=== PATIENT | female | born 1960 | race Caucasian/White ===

== ENCOUNTER 2022-04-25 07:41 | Day surgery (SDC) | payer OTHER ==
[2022-04-21 13:17] VITALS: BMI 28.2
[2022-04-25] MEDS ORDERED: Fentanyl 100 MCG/2 ML VIAL ONE (09:25)
[2022-04-25] MEDS ORDERED: Midazolam HCl 2 mg/2 ml Vial ONE ×2 (09:25→09:46)
[2022-04-25] MEDS ORDERED: PROPOFOL 80 ML ONE (09:25)
[2022-04-25] MEDS ORDERED: EPINEPHrine 1 MG/ML AMP ONE (09:25)
[2022-04-25] MEDS ORDERED: Ondansetron PF 4 MG/2 ML Vial ONE (09:25)
[2022-04-25] MEDS ORDERED: Dexamethasone 20 MG/5 ML VIAL ONE (09:26)
[2022-04-25] MEDS ORDERED: Lidocaine 1% PF 5 ML VIAL ONE (09:26)
[2022-04-25] MEDS ORDERED: CEFAZOLIN 2 GM VIAL ONE (09:39)
[2022-04-25] MEDS ORDERED: Triamcinolone 40 MG/ML VIAL ONE (09:46)
== END 2022-04-25 11:55 | disposition home or self-care (01) ==
LOC: CSHSDC 07:41
PROVIDERS: ATTEND Otolaryngology Plastic Surgery within the Head & Neck
PROC: 0C5V8ZZ Destruction of Left Vocal Cord, Via Natural or Artificial Opening Endoscopic (ICD-10-PCS; principal; 2022-04-25)
PROC: 0C5T8ZZ Destruction of Right Vocal Cord, Via Natural or Artificial Opening Endoscopic (ICD-10-PCS; principal; 2022-04-25)
DX: J38.1 Polyp of vocal cord and larynx (principal); R23.4 Changes in skin texture; F17.210 Nicotine dependence, cigarettes, uncomplicated; J34.3 Hypertrophy of nasal turbinates; J38.4 Edema of larynx; R09.81 Nasal congestion; R43.0 Anosmia; H69.83 Other specified disorders of Eustachian tube, bilateral; J38.3 Other diseases of vocal cords; K13.29 Other disturbances of oral epithelium, including tongue; G43.909 Migraine, unspecified, not intractable, without status migrainosus; J42 Unspecified chronic bronchitis; J43.9 Emphysema, unspecified; E03.9 Hypothyroidism, unspecified; F41.9 Anxiety disorder, unspecified; Z79.899 Other long term (current) drug therapy; Z88.8 Allergy status to other drugs, medicaments and biological substances; Z88.5 Allergy status to narcotic agent; Z90.49 Acquired absence of other specified parts of digestive tract; Z98.890 Other specified postprocedural states
CPT/HCPCS: 36415; 85014; 88305; J0171; J0690; J1100; J2250; J2405; J2704; J3010; J3301